=== PATIENT | male | born 1940 ===

== ENCOUNTER 2022-11-19 11:43 | Outpatient (CLI) | payer MEDICARE, OTHER, SELFPAY ==
[2022-11-19 13:11] LABS: Basophils % 0.3 %; Eosinophils # 0.3 10^3/uL (0.0-0.8); Eosinophils % 4.4 %; Hematocrit 25.3 % (42.0-52.0); Hemoglobin 8.1 g/dL (11.7-16.6); Mean Corpuscular Hemoglobin 31.5 pg (28.0-34.0); Mean Corpuscular Volume 98.4 fl (80-94); Mean Platelet Volume 10.1 fL (7.4-10.4); Monocytes # 0.8 10^3/uL (0.2-0.9); Monocytes % 13.3 %; Neutrophils # 4.15 10^3/uL (1.8-7.7); Neutrophils % 65.5 %; Nucleated Red Blood Cells % 0 %; Platelet Count 51 10^3/cmm (130-400); Red Blood Count 2.57 10^6/uL (4.1-5.3); Red Cell Distribution Width 23.9 % (12.1-15.1); White Blood Count 6.3 10^3/uL (4.0-10.0)
== END 2022-11-19 11:44 | disposition home or self-care (01) ==
PROVIDERS: PCP Internal Medicine; Visit Provider Internal Medicine Medical Oncology
DX: C41.1 Malignant neoplasm of mandible (principal)
CPT/HCPCS: 85025; J1642